=== PATIENT | male | born 1985 | race Caucasian/White ===

== ENCOUNTER 2018-04-17 10:44 | Emergency (ER) | payer BC, OTHER ==
[~2018-04-17] VITALS: Ht 172.7 cm; Wt 72.6 kg
[2018-04-17] MEDS ORDERED: NORFLEX100 MG PO (12:50)
[2018-04-17] MEDS ORDERED: MOBIC7.5 MG PO (12:50)
[2018-04-17 13:42] VITALS: BP 138/68
== END 2018-04-17 13:42 | disposition home or self-care (01) ==
LOC: ER 10:44
DX: S29.012A Strain of muscle and tendon of back wall of thorax, initial encounter (principal); S16.1XXA Strain of muscle, fascia and tendon at neck level, initial encounter; Z88.0 Allergy status to penicillin; V89.2XXA Person injured in unspecified motor-vehicle accident, traffic, initial encounter; Y93.89 Activity, other specified; Y92.89 Other specified places as the place of occurrence of the external cause; Y99.8 Other external cause status